=== PATIENT | male | born 1995 | race Caucasian/White ===

== ENCOUNTER 2021-07-30 11:41 | Outpatient (CLI) | payer OTHER, SELFPAY ==
[2021-07-30 20:29] LABS: Hematocrit 45.3 % (42.0-52.0); Hemoglobin 15.1 g/dL (14.0-18.0); Mean Corpuscular HGB Conc 33.3 g/dl (32-36); Mean Corpuscular Hemoglobin 31.6 pg (26-34); Mean Corpuscular Volume 94.8 fl (80-100); Mean Platelet Volume 12.2 fl (7.4-10.4); Platelet Count Result 188 k/mm3 (150-375); Red Blood Count 4.78 M/mm3 (4.6-6.20); White Blood Count 6.4 K/mm3 (4.5-10.0)
[2021-07-30 20:37] LABS: Alanine Aminotransferase 14 U/L (4-50); Albumin Level 5.4 g/dL (3.5-5.1); Alkaline Phosphatase 51 U/L (38-126); Anion Gap 9 mmol/L (8-16); Aspartate Amino Transferase 25 U/L (17-59); Bilirubin,Total 0.7 mg/dL (0.2-1.3); Blood Urea Nitrogen 10 mg/dL (9-20); CRP < 0.5 mg/dL (<1.0); Calcium 10.3 mg/dL (8.4-10.2); Carbon Dioxide 29 mmol/L (22-30); Chloride 100 mmol/L (98-107); Cholesterol 178 mg/dL (0-200); Creatine Kinase 47 U/L (55-170); Estimated Glomerular Filt Rate > 60; Glucose 90 mg/dL (65-110); HDL Direct 71 mg/dL; Potassium 4.2 mmol/L (3.4-5.0); Sodium 138 mmol/L (137-145); Triglycerides 91 mg/dL (<150)
[2021-07-30 20:46] LABS: LDL Cholesterol Direct 81 mg/dL
[2021-07-30 21:04] LABS: Thyroid Stimulating Hormone Reflex 0.433 uIU/mL (0.465-4.68)
[2021-07-30 21:12] LABS: Erythrocyte Sedimentation Rate 5 mm/hr (0-20)
[2021-07-30 23:04] LABS: Total Triiodothyronine (T3) 1.44 NG/ML (0.97-1.69)
== END 2021-07-30 11:42 | disposition home or self-care (01) ==
PROVIDERS: PCP Family Medicine; Visit Provider Family Medicine
DX: E11.9 Type 2 diabetes mellitus without complications (principal); M79.10 Myalgia, unspecified site; I10 Essential (primary) hypertension; T78.40XA Allergy, unspecified, initial encounter
CPT/HCPCS: 36415; 80053; 80061; 82550; 84439; 84443; 84480; 85027; 85652; 86038; 86140

== ENCOUNTER 2021-08-05 14:25 | Outpatient (CLI) | payer OTHER, SELFPAY ==
--- NOTE | 2021-08-05 | ECG_ITS ---
Measurements Intervals [place] Rate: 65 P: 76 GA: 150 QRS: 90 QRSD: 98 T: 59 QT: 353 QTc: 368 Interpretive Statements SINUS RHYTHM POSSIBLE LEFT ATRIAL ENLARGEMENT INCOMPLETE RIGHT BUNDLE BRANCH BLOCK MINIMAL Q WAVES- INFERIOR LEADS BORDERLINE ECG Electronically Signed On 08-05-2021 14:48:15 CDT by Miguel Webb D.O.
== END 2021-08-05 14:26 | disposition home or self-care (01) ==
LOC: ANHCARD 14:28
PROVIDERS: PCP Family Medicine; Visit Provider Family Medicine
DX: R07.89 Other chest pain (principal); I45.10 Unspecified right bundle-branch block
CPT/HCPCS: 93005

== ENCOUNTER 2021-09-16 13:26 | Outpatient (CLI) | payer OTHER, SELFPAY ==
[2021-09-16 19:12] LABS: Hematocrit 45.9 % (42.0-52.0); Hemoglobin 15.2 g/dL (14.0-18.0); Mean Corpuscular HGB Conc 33.1 g/dl (32-36); Mean Corpuscular Hemoglobin 31.2 pg (26-34); Mean Corpuscular Volume 94.3 fl (80-100); Mean Platelet Volume 11.9 fl (7.4-10.4); Platelet Count Result 201 k/mm3 (150-375); Red Blood Count 4.87 M/mm3 (4.6-6.20); Red Cell Distribution Width 11.9 % (11.5-14.5); White Blood Count 5.7 K/mm3 (4.5-10.0)
[2021-09-16 19:24] LABS: Alanine Aminotransferase 14 U/L (4-50); Albumin Level 5.4 g/dL (3.5-5.1); Alkaline Phosphatase 50 U/L (38-126); Anion Gap 15 mmol/L (8-16); Aspartate Amino Transferase 26 U/L (17-59); Bilirubin,Total 0.7 mg/dL (0.2-1.3); Blood Urea Nitrogen 14 mg/dL (9-20); Calcium 10.6 mg/dL (8.4-10.2); Carbon Dioxide 29 mmol/L (22-30); Chloride 100 mmol/L (98-107); Estimated Glomerular Filt Rate > 60; Glucose 136 mg/dL (65-110); Sodium 144 mmol/L (137-145)
[2021-09-16 19:56] LABS: Thyroid Stimulating Hormone Reflex 0.384 uIU/mL (0.465-4.68)
[2021-09-17 10:21] LABS: Total Triiodothyronine (T3) 1.63 NG/ML (0.97-1.69)
== END 2021-09-16 13:27 | disposition home or self-care (01) ==
LOC: ANHBWCLAB 13:28
PROVIDERS: PCP Family Medicine; Visit Provider Family Medicine
DX: S09.90XA Unspecified injury of head, initial encounter (principal); R51.9 Headache, unspecified; R42 Dizziness and giddiness; G47.00 Insomnia, unspecified; X58.XXXA Exposure to other specified factors, initial encounter
CPT/HCPCS: 36415; 80053; 84439; 84443; 84480; 85027

== ENCOUNTER 2021-09-21 11:59 | Outpatient (CLI) | payer OTHER, SELFPAY ==
[2021-09-21 21:30] LABS: Free T4 Free Thyroxine 1.53 ng/mL (0.78-2.19)
[2021-09-21 21:45] LABS: Thyroid Stimulating Hormone Reflex 0.958 uIU/mL (0.465-4.68)
[2021-09-24 07:50] LABS: Triiodothyronine T3 Free 3.6 pg/mL (2.3-4.2)
[2021-09-26 07:51] LABS: Thyroid Peroxidase Antibodies 10 IU/mL (<9)
[2021-09-26 11:19] LABS: Ionized Calcium 5.4 mg/dL (4.8-5.6)
== END 2021-09-21 12:00 | disposition home or self-care (01) ==
LOC: ANHBWCLAB 12:00
PROVIDERS: PCP Family Medicine; Visit Provider Family Medicine
DX: R79.89 Other specified abnormal findings of blood chemistry (principal); E83.52 Hypercalcemia
CPT/HCPCS: 36415; 82330; 84439; 84443; 84481; 86376

== ENCOUNTER 2021-12-15 08:35 | Outpatient (CLI) | payer OTHER, SELFPAY ==
[2021-12-15 20:00] LABS: Anion Gap 10 mmol/L (8-16); Blood Urea Nitrogen 13 mg/dL (9-20); Calcium 10.7 mg/dL (8.4-10.2); Carbon Dioxide 28 mmol/L (22-30); Chloride 100 mmol/L (98-107); Estimated Glomerular Filt Rate > 60; Glucose 92 mg/dL (65-110); Potassium 4.1 mmol/L (3.4-5.0); Sodium 138 mmol/L (137-145)
[2021-12-15 20:04] LABS: Hemoglobin A1C 5.3 % (<5.7)
[2021-12-15 20:31] LABS: Thyroid Stimulating Hormone Reflex 0.765 uIU/mL (0.465-4.68)
[2021-12-18 03:15] LABS: Ionized Calcium 5.2 mg/dL (4.8-5.6)
[2021-12-23 15:15] LABS: Parathyroid Hormone Related Pr 11 pg/mL (11-20)
== END 2021-12-15 08:36 | disposition home or self-care (01) ==
LOC: ANHBWCLAB 08:36
PROVIDERS: PCP Family Medicine; Visit Provider Family Medicine
DX: E83.52 Hypercalcemia (principal); R42 Dizziness and giddiness; R73.09 Other abnormal glucose; R79.89 Other specified abnormal findings of blood chemistry
CPT/HCPCS: 36415; 80048; 82330; 83036; 83519; 84443

== ENCOUNTER 2022-01-26 08:04 | Outpatient (CLI) | payer OTHER, SELFPAY | END 2022-01-26 08:05 | disposition home or self-care (01) | LOC: ANHBWCAUD 08:05 | PROVIDERS: PCP Family Medicine; Visit Provider Family Medicine | DX: H93.19 Tinnitus, unspecified ear (principal) | CPT/HCPCS: 92557; 92567 ==

== ENCOUNTER 2022-04-14 08:36 | Outpatient (CLI) | payer OTHER, SELFPAY ==
--- NOTE | ~2022-04-14 | XR_ITS ---
EXAMINATION: XR TMJ BI DATE: 04/14/2022 09:23 INDICATION: Dislocation of jaw, unspecified side, initial encounter. TECHNIQUE: 5 views of the temporomandibular joints including open and closed mouth views were obtaine d. COMPARISON: None. FINDINGS: Bone alignment is normal. No fracture. The mandibular condyles are normal in morphology. Th ere is normal anterior translation of the mandibular condyles in the open-mouth position. Joint space s are normal. IMPRESSION: 1. Normal temporomandibular joints. Reviewed, dictated and finalized at location B.
== END 2022-04-14 08:37 | disposition home or self-care (01) ==
PROVIDERS: PCP Family Medicine; Visit Provider Family Medicine
DX: S03.00XA Dislocation of jaw, unspecified side, initial encounter (principal); X58.XXXA Exposure to other specified factors, initial encounter
CPT/HCPCS: 70330

== ENCOUNTER 2022-06-02 13:40 | Outpatient (CLI) | payer OTHER, SELFPAY ==
--- NOTE | ~2022-06-02 | MR_ITS ---
EXAMINATION: MR brain/brain stem wo/w con DATE: 06/02/2022 15:22 INDICATION: Unspecified hearing loss. Tinnitus. TECHNIQUE: Magnetic resonance imaging (MRI) of the brain and brainstem was performed without and with 15 mL MultiHance intravenous contrast. COMPARISON: None. FINDINGS: There is a 2.3 x 1.1 cm arachnoid cyst anterior to right temporal lobe. There is no intracr anial hemorrhage, acute infarction, or abnormal intracranial mass lesion. The ventricles are normal i n size. The internal auditory canals and inner and middle ears are normal. The mastoid air cells are normal. The paranasal sinuses are clear. The orbits are normal. IMPRESSION: 1. No etiology for the patient's symptoms. Reviewed, dictated and finalized at location A.
== END 2022-06-02 13:41 | disposition home or self-care (01) ==
PROVIDERS: PCP Family Medicine; Visit Provider Family Medicine
DX: H91.90 Unspecified hearing loss, unspecified ear (principal); H93.19 Tinnitus, unspecified ear; H93.8X9 Other specified disorders of ear, unspecified ear
CPT/HCPCS: 70553; A9577

== ENCOUNTER 2022-07-07 10:31 | Outpatient (CLI) | payer OTHER, SELFPAY ==
--- NOTE | ~2022-07-07 | XR_ITS ---
EXAM: XR cervical spine 4-5V DATE: 07/07/2022 10:48 HISTORY: M54.2 - Cervicalgia . COMPARISON: None available. FINDINGS: Craniocervical association and atlantoaxial joint are normal. No prevertebral soft tissue swelling. Vertebral bodies are aligned. Vertebral body heights and disc spaces are maintained. Normal facets and posterior elements. IMPRESSION: Normal cervical spine radiograph findings. Reviewed, dictated and finalized at location K.
== END 2022-07-07 10:32 | disposition home or self-care (01) ==
LOC: ANHBWCIMG 10:32
PROVIDERS: PCP Family Medicine; Visit Provider Family Medicine
DX: M54.2 Cervicalgia (principal)
CPT/HCPCS: 72050

== ENCOUNTER 2022-07-23 09:46 | Outpatient (CLI) | payer OTHER, SELFPAY ==
[2022-07-23 10:35] LABS: Basophils Percent Auto 0.4 % (0.2-1.2); Eosinophils Absolute Auto 0.1 K/mm3 (0-0.3); Eosinophils Percent Auto 1.7 % (0-4.4); Hematocrit 44.7 % (42.0-52.0); Hemoglobin 15.2 g/dL (14.0-18.0); Immature Granulocyte Absolute 0.02 K/mm3 (0.00-0.031); Immature Granulocyte Percent A 0.3 % (0-0.5); Lymphocytes Absolute Auto 2.24 K/mm3 (0.9-3.2); Lymphocytes Percent Auto 28.7 % (18.3-44.2); Mean Corpuscular Hemoglobin 30.7 pg (26-34); Mean Corpuscular Volume 90.3 fl (80-100); Mean Platelet Volume 11.6 fl (7.4-10.4); Monocytes Absolute Auto 0.5 K/mm3 (0.1-0.6); Monocytes Percent Auto 6.4 % (2.6-8.5); Neutrophils Absolute Auto 4.9 K/mm3 (1.3-6.7); Neutrophils Percent Auto 62.5 % (45.5-73.1); Platelet Count Result 221 k/mm3 (150-375); Red Blood Count 4.95 M/mm3 (4.6-6.20); Red Cell Distribution Width 11.9 % (11.5-14.5); White Blood Count 7.8 K/mm3 (4.5-10.0)
[2022-07-23 10:49] LABS: Alanine Aminotransferase 16 U/L (6-50); Alkaline Phosphatase 63 U/L (38-126); Anion Gap 15 mmol/L (8-16); Aspartate Amino Transferase 27 U/L (17-59); Bilirubin,Total 0.4 mg/dL (0.2-1.3); Blood Urea Nitrogen 14 mg/dL (9-20); Calcium 9.7 mg/dL (8.4-10.2); Carbon Dioxide 23 mmol/L (22-30); Chloride 101 mmol/L (98-107); Estimated Glomerular Filt Rate > 60; Glucose 89 mg/dL (65-110); Potassium 4.3 mmol/L (3.4-5.0); Sodium 139 mmol/L (137-145)
[2022-07-23 11:11] LABS: Rheumatoid Factor < 8.6 IU/ML (<12)
[2022-07-23 11:12] LABS: Erythrocyte Sedimentation Rate 1 mm/hr (0-20)
== END 2022-07-23 09:47 | disposition home or self-care (01) ==
LOC: ANHLAB 09:48
PROVIDERS: PCP Family Medicine; Visit Provider Psychiatry & Neurology Neurology
DX: H93.19 Tinnitus, unspecified ear (principal)
CPT/HCPCS: 36415; 80053; 85025; 85652; 86038; 86430

== ENCOUNTER 2022-08-03 07:02 | Outpatient (CLI) | payer OTHER, SELFPAY ==
--- NOTE | ~2022-08-03 | MR_ITS ---
EXAMINATION: MR cervical spine wo con DATE: 08/03/2022 07:36 INDICATION: Myelopathy. TECHNIQUE: Magnetic resonance imaging (MRI) of the cervical spine was performed without intravenous c ontrast. Sequences included sagittal T2-weighted FSE, sagittal T2-weighted FS FSE, sagittal T1-weight ed FSE, axial MERGE, and axial T2-weighted FSE. COMPARISON: Cervical spine radiographs 07/07/2022 FINDINGS: There is 3 degrees dextrocurvature of cervical spine. Vertebral body heights and interverte bral disc heights are normal. There is focal increased T2-weighted signal intensity in the spinal cor d on the left at C3. The following disc levels are specifically discussed: C2-C3: The disc does not extend beyond the endplate margin. There is no uncovertebral joint osteoarth ritis. There is mild right facet joint osteoarthritis. There is no neural foraminal stenosis. There i s no central canal stenosis. C3-C4: The disc does not extend beyond the endplate margin. There is no uncovertebral joint osteoarth ritis. There is mild left facet joint osteoarthritis. There is no neural foraminal stenosis. There is no central canal stenosis. C4-C5: The disc does not extend beyond the endplate margin. There is no uncovertebral joint osteoarth ritis. There is no facet joint osteoarthritis. There is no neural foraminal stenosis. There is no mary lou tral canal stenosis. C5-C6: The disc does not extend beyond the endplate margin. There is no uncovertebral joint osteoarth ritis. There is no facet joint osteoarthritis. There is no neural foraminal stenosis. There is no mary lou tral canal stenosis. C6-C7: The disc does not extend beyond the endplate margin. There is no uncovertebral joint osteoarth ritis. There is no facet joint osteoarthritis. There is no neural foraminal stenosis. There is no mary lou tral canal stenosis. C7-T1: The disc does not extend beyond the endplate margin. There is no uncovertebral joint osteoarth ritis. There is no facet joint osteoarthritis. There is no neural foraminal stenosis. There is no mary lou tral canal stenosis. IMPRESSION: 1. Focal increased T2-weighted signal intensity in the spinal cord on the left at C3, consistent with myelomalacia of uncertain etiology. Reviewed, dictated and finalized at location B.
== END 2022-08-03 07:03 | disposition home or self-care (01) ==
PROVIDERS: PCP Family Medicine; Visit Provider Psychiatry & Neurology Neurology
DX: G95.9 Disease of spinal cord, unspecified (principal)
CPT/HCPCS: 72141

== ENCOUNTER 2023-07-25 07:47 | Outpatient (CLI) | payer OTHER, SELFPAY ==
[2023-07-25 18:48] LABS: Alanine Aminotransferase 14 U/L (6-50); Albumin Level 4.8 g/dL (3.5-5.1); Alkaline Phosphatase 56 U/L (38-126); Anion Gap 6 mmol/L (8-16); Aspartate Amino Transferase 41 U/L (17-59); Bilirubin,Total 0.6 mg/dL (0.2-1.3); Blood Urea Nitrogen 10 mg/dL (9-20); Calcium 9.6 mg/dL (8.4-10.2); Carbon Dioxide 31 mmol/L (22-30); Chloride 103 mmol/L (98-107); Cholesterol 138 mg/dL (0-200); Estimated Glomerular Filt Rate > 60; Glucose 97 mg/dL (65-110); HDL Direct 50 mg/dL; Potassium 3.9 mmol/L (3.4-5.0); Sodium 140 mmol/L (137-145); Triglycerides 154 mg/dL (<150)
[2023-07-25 18:59] LABS: LDL Cholesterol Direct 66 mg/dL
[2023-07-25 19:54] LABS: Hematocrit 48.9 % (42.0-52.0); Hemoglobin 15.4 g/dL (14.0-18.0); Mean Corpuscular HGB Conc 31.5 g/dl (32-36); Mean Corpuscular Hemoglobin 30.6 pg (26-34); Platelet Count Result 195 k/mm3 (150-375); Red Blood Count 5.04 M/mm3 (4.6-6.20); Red Cell Distribution Width 12.4 % (11.5-14.5); White Blood Count 6.1 K/mm3 (4.5-10.0)
== END 2023-07-25 07:48 | disposition home or self-care (01) ==
LOC: ANHBWCLAB 07:48
PROVIDERS: PCP Family Medicine; Visit Provider Family Medicine
DX: F41.9 Anxiety disorder, unspecified (principal); F43.9 Reaction to severe stress, unspecified; M54.2 Cervicalgia; M79.10 Myalgia, unspecified site; R51.9 Headache, unspecified; R79.89 Other specified abnormal findings of blood chemistry; Z00.00 Encounter for general adult medical examination without abnormal findings; Z87.09 Personal history of other diseases of the respiratory system; M54.50 Low back pain, unspecified
CPT/HCPCS: 36415; 80053; 80061; 84443; 85027